=== PATIENT | female | born 1945 | race Caucasian/White ===

== ENCOUNTER 2016-10-15 10:52 | Outpatient (CLI) | payer MEDICARE, OTHER ==
[~2016-10-15] VITALS: Ht 162.6 cm; Wt 56.4 kg
[~2016-10-15 10:52] MED LIST: BIOTIN5 MG PO; CO Q-10400 MG PO; LOPRESSOR25 MG PO; METOPROLOL TART50 MG PO; MULTIPLE VITAMI1 TA1 PO; OS-CAL500 MG PO; PREMARIN45 GM VG; PREVACID15 MG PO; PROBIOTIC1 EAC1 PO; TERAZOSIN HCL2 MG; ZOCOR20 MG PO
[2016-10-15] MEDS ORDERED: ZOLOFT50 MG PO (11:54)
[2016-10-15] MEDS ORDERED: BAYER CHEWABLE81 MG PO (11:55)
[2016-10-15] MEDS ORDERED: LISINOPRIL10 MG PO (11:55)
[2016-10-15 12:00] VITALS: BP 119/67; Ht 162.6 cm; Wt 56.4 kg
--- NOTE | 2016-10-15 12:13 | NUR ---
1200 PATIENT HERE FOR PROLIA INJECTION, GIVEN IN LEFT UPPER SUBQ TISSUE WITHOUT PROBLEMS NOTED AT THE SITE.
== END 2016-10-15 12:10 ==
LOC: D.OPS 10:52
DX: M81.0 Age-related osteoporosis without current pathological fracture (principal)

== ENCOUNTER 2017-05-13 11:05 | Outpatient (CLI) | payer MEDICARE, OTHER ==
[~2017-05-13] VITALS: Ht 162.6 cm; Wt 57.7 kg
[~2017-05-13 11:05] MED LIST changes: +BAYER CHEWABLE81 MG PO; +LISINOPRIL10 MG PO; +ZOLOFT50 MG PO
[2017-05-13 11:56] VITALS: BP 123/52; Ht 162.6 cm; Wt 57.7 kg
== END 2017-05-13 11:49 | disposition home or self-care (01) ==
LOC: D.OPS 11:05
DX: M81.0 Age-related osteoporosis without current pathological fracture (principal)